=== PATIENT | female | born 1990 | race Two or more races ===

== ENCOUNTER → 2025-01-01 | Emergency (ER) | payer OTHER ==
[~2025-01-01] VITALS: Ht 180.3 cm; Wt 90.7 kg
[~2025-01-01] MED LIST: DEXTROSE 50 % IN WATER 0.5 G/ML VIAL IV STA; ONDANSETRON HCL 2 MG/ML VIAL IV STA
== END | disposition left against medical advice (07) ==
LOC: EDBD 01:31 → ER 01:31
DX: Z53.21 Procedure and treatment not carried out due to patient leaving prior to being seen by health care provider (principal)